=== PATIENT | female | born 1970 | race Caucasian/White ===

== ENCOUNTER 2024-05-01 17:23 | Emergency (ER) | payer MEDICARE, OTHER, SELFPAY ==
[2024-05-01 17:25] VITALS: BP 136/80
--- NOTE | 2024-05-01 18:09 | ED.SKININJ ---
HPI-Injury
<Jeni Welch MD, Resident - Last Filed: 05/01/24 20:51>
General
Chief Complaint: Bite
Time Seen by Provider: 05/01/24 17:37
History of Present Illness-Injury
Initial Injury comments:
This is a 53 year old female patient with PMH of thoracic outlet syndrome on chronic pain management who presents to the ED with concerns of a dog bite. She statest that earlier today she had a turkey resting on the stove when she noticed her 2
lucia doodle dogs had gotten into a fight. As the patient tried to intervene and break up the fight, she was bitten multiple times on her right hand and left forearm. She denies any fever, chills or vomiting. She does endorse mild numbness on the
tips of her fingers on right hand. She does not remember when she had last received her Tdap but assumes it was more than 10 years ago.
<Bryce Vila, DO - Last Filed: 05/01/24 22:00>
General
Source: patient and spouse
Past History
<Bryce Vila DO - Last Filed: 05/01/24 22:00>
Past History
ED Past Medical History: Other (Thoracic outlet syndrome)
ED Past Surgical History: , Gynecological and Orthopedic
Social History
Tobacco: Smoker
Personal:
Living: with family
Employment: Employed (Nurse)
Review of Systems
<Jeni Welch MD, Resident - Last Filed: 05/01/24 20:51>
Review of Systems
Constitutional: Denies fever or chills
Cardiac: Denies chest pain or palpitations
ABD/GI: Denies abdominal pain
Skin: Reports other (tenderness on rigth hand and left forearm due to multiple dog bites)
Skin Exam
<Jeni Welch MD, Resident - Last Filed: 05/01/24 20:51>
Bite
Right Hand:
Type: animal
Skin has: other (multiple small laceration on fingers of right hand)
Right Hand and Left Forearm:
Type: animal (lucia odle)
Skin has: other (multiple small lacerations on fingers of right hand and 2 bite of left fore)
Phy Exam
<Jeni Welch MD, Resident - Last Filed: 05/01/24 20:51>
General Physical Exam
General Presentation: well appearing and no apparent distress
Cardiovascular Exam
Cardiovascular Exam: regular rate/rhythm and no murmur
Heart Sounds: normal
Pulmonary Exam
Pulmonary Exam: lungs clear, no respiratory distress and no crackles
Gastrointestinal Exam
Gastrointestinal Exam: non tender, soft and non distended
Neurological Exam
Neurological Exam: oriented x3
Musculoskeletal Exam
Musculoskeletal Exam: no edema
Skin Exam
Skin Exam: warm/dry
Psychiatric Exam
Psychiatric Exam: normal mood/affect
Course
<Jeni Welch MD, Resident - Last Filed: 05/01/24 20:51>
Orders/Labs/Results
Orders:
Orders
05/01/24 18:09
Tetanus/Diphth/Acelpertussis [Adacel] 0.5 ml IM .ONCE ONE
CR Hand - Right Min 3 Views Urgent
Comment:
Reason For Exam: dog bite
05/01/24 18:13
Amoxicillin 875 mg/Clav 125 mg [Augmentin 875 mg/125 mg] 1 tablet PO NOW STA
Vital Signs
Initial and Last Documented VS:
Initial Vital Signs
Temp Pulse Resp BP Pulse Ox
99.2 F 111 18 136/80 98
05/01/24 17:25 05/01/24 17:25 05/01/24 17:25 05/01/24 17:25 05/01/24 17:25
Last Documented Vital Signs
Temp Pulse Resp BP Pulse Ox
99.2 F 111 18 136/80 98
05/01/24 17:25 05/01/24 17:25 05/01/24 17:25 05/01/24 17:25 05/01/24 17:25
<Bryce Vila DO - Last Filed: 05/01/24 22:00>
Orders/Labs/Results
Orders:
Orders
05/01/24 18:09
Tetanus/Diphth/Acelpertussis [Adacel] 0.5 ml IM .ONCE ONE
CR Hand - Right Min 3 Views Urgent
Comment:
Reason For Exam: dog bite
05/01/24 18:13
Amoxicillin 875 mg/Clav 125 mg [Augmentin 875 mg/125 mg] 1 tablet PO NOW STA
Vital Signs
Initial and Last Documented VS:
Initial Vital Signs
Temp Pulse Resp BP Pulse Ox
99.2 F 111 18 136/80 98
05/01/24 17:25 05/01/24 17:25 05/01/24 17:25 05/01/24 17:25 05/01/24 17:25
Last Documented Vital Signs
Temp Pulse Resp BP Pulse Ox
99.2 F 111 18 136/80 98
05/01/24 17:25 05/01/24 17:25 05/01/24 17:25 05/01/24 17:25 05/01/24 17:25
<Jeni Welch MD, Resident - Last Filed: 05/01/24 20:51>
MDM/Problems Addressed
Differential Diagnosis Includes:
Dog bite, cellulitis
MDM/Problems Addressed:
Xray of right hand without any significant findings. Cleaning and dressings for local wounds of right hand done for patient. Given dose of Augmentin today. Patient stable for discharge with Augmentin for the next 6 days and advised to follow up with
their PCP.
<Jeni Welch MD, Resident - Last Filed: 05/01/24 20:51>
*Critical Care Note
Total Time (30-74mins, 75-104mins- exclusive of procedures): Not Applicable
<Bryce Vila DO - Last Filed: 05/01/24 22:00>
*Radiology
Radiology exam reviewed: all reviewed NAD by ED Provider
*Pulse Oximetry
Patient hypoxic: no
*Critical Care Note
Total Time (30-74mins, 75-104mins- exclusive of procedures): Not Applicable
Data Reviewed
Source: patient and spouse
Prescriptions/Medications Considered But Not Given:
Considered rabies vaccination but domestic dog
ED Attending Note
<Bryce Vila DO - Last Filed: 05/01/24 22:00>
ED Attending Note
Patient seen and examined by attending physician: Yes
I performed a history and physical exam of patient and discussed management with resident, I reviewed resident's note and agree with documented findings and plan of care.: Yes
ED Attending Note:
53-year-old female tried to break up her dogs and was bit. Multiple wounds to bilateral hands most notably to the right third digit with small laceration. Normal distal cap refill. Some swelling to the left forearm with abrasion. Assessment
plan: Multiple superficial wounds. In light of bite wound, suture repair not indicated. Wounds irrigated. Antibiotics. Update tetanus and okay for discharge
-
Portions of this chart may have been created with voice recognition software.� Occasional wrong word or��sound alike� substitutions may have occurred due to the inherent limitations of voice recognition software.
Discharge Plan
Departure
Patient Disposition: Home (Routine Discharge)
Date of Disposition: 05/01/24
Time of Disposition: 18:31
Patient with high blood pressure during this ER visit?: Yes
Discharge Problem:
Dog bite of right hand, Dog bite of left forearm
Instructions: Animal Bites (DC)
Prescriptions:
New
amoxicillin-pot clavulanate 875-125 mg tablet
1 tab PO BID 6 Days Qty: 12 0RF
No Action
Probiotic 1 EACH capsule
1 ea PO DAILY
omeprazole 20 MG capsule,delayed release(DR/EC)
20 mg PO BID
oxycodone 10 MG tablet
10 - 20 mg PO Q6HPRN PRN (Reason: pain)
bupropion HCl 150 MG tablet sustained-release 12 hr
150 mg PO DAILY
cetirizine [Zyrtec] 10 mg Tablet
10 mg PO DAILY PRN (Reason: hives)
acetaminophen 500 mg Tablet
1,000 mg PO TID
naproxen sodium [Aleve] 220 mg Tablet
220 mg PO BID
gabapentin 300 mg Capsule
300 mg PO HS
gabapentin 100 mg Capsule
100 mg PO BID
Xtampza ER 36 mg Cap,Sprinkl,Er12hr(Dont Crush)
36 mg PO BID
Activity Restrictions/Additional Instructions:
If experiencing symptoms such as worsening hand pain, worsening swelling, high grade fever or chills please return to the ER. Take Augmentin for the next 6 days twice a day. Please follow up with your family doctor in a week.
Interventions
Interventions:
*Risk Screen - Suicide Last Done: 05/01/24 17:25
*General Assessment Last Done: 05/01/24 17:25
*Neglect/Abuse Screening Last Done: 05/01/24 17:25
ED- Fall Risk Assessment Last Done: 05/01/24 17:32
*ED COVID-19 Vaccine History Last Done: 05/01/24 17:25
*Nursing Disposition Last Done: 05/01/24 19:53
ED-Skin Assessment Last Done: 05/01/24 17:32
Discharge Date and Time
Discharge Date/Time: 05/01/24 20:21
Print Language: SAUDI ARABIAN
[2024-05-01] MEDS: AUGMENTIN 875 MG/125 MG 1 TABLET PO (18:34)
[2024-05-01] MEDS: ADACEL 0.5 ML IM (18:34)
== END 2024-05-01 20:21 | disposition home or self-care (01) ==
LOC: EMR 17:23
PROVIDERS: EMERGENCY PHYSICIAN Emergency Medicine; FAMILY PHYSICIAN Family Medicine
DX: S51.852A Open bite of left forearm, initial encounter (principal); S61.451A Open bite of right hand, initial encounter; S50.812A Abrasion of left forearm, initial encounter; R20.0 Anesthesia of skin; W54.0XXA Bitten by dog, initial encounter; R03.0 Elevated blood-pressure reading, without diagnosis of hypertension; Z23 Encounter for immunization; G54.0 Brachial plexus disorders; G89.29 Other chronic pain; F17.200 Nicotine dependence, unspecified, uncomplicated; Z88.1 Allergy status to other antibiotic agents
CPT/HCPCS: 99283; 90471; 73130; 90715